=== PATIENT | female | born 1970 | race African-American/Black ===

== ENCOUNTER 2018-03-28 04:02 | Emergency (ER) | payer OTHER ==
[~2018-03-28] VITALS: Ht 170.2 cm; Wt 75.0 kg
[2018-03-28 06:47] VITALS: BP 112/72
== END 2018-03-28 07:03 | disposition home or self-care (01) ==
LOC: EMS 04:02
DX: J01.90 Acute sinusitis, unspecified (principal); F17.210 Nicotine dependence, cigarettes, uncomplicated

== ENCOUNTER 2018-04-11 15:25 | Emergency (ER) | payer OTHER ==
[~2018-04-11] VITALS: Ht 170.2 cm; Wt 70.5 kg
[2018-04-11] MEDS ORDERED: ACETAMINOPHEN 500 MG TABLET PO ONE (16:30)
[2018-04-11 17:04] VITALS: BP 133/88
== END 2018-04-11 17:54 | disposition home or self-care (01) ==
LOC: EMS 15:27
DX: S01.511A Laceration without foreign body of lip, initial encounter (principal); S01.81XA Laceration without foreign body of other part of head, initial encounter; F17.210 Nicotine dependence, cigarettes, uncomplicated; V43.52XA Car driver injured in collision with other type car in traffic accident, initial encounter; Y93.89 Activity, other specified; Y92.89 Other specified places as the place of occurrence of the external cause; Y99.8 Other external cause status
CPT/HCPCS: 99406